=== PATIENT | female | born 1950 ===

== ENCOUNTER → 2020-10-11 | Outpatient (CLI) | payer OTHER, MEDICARE ==
[~2020-10-11] MED LIST: IOHEXOL 180 MG/ML 10 ML VIAL. ONE; LEVO150C3 PO; NIFE60TA90 PO; QUIN40TA16 PO; SIMV40TA18 PO; methylPREDNISolone ACETATE 80 MG/ML VIAL. ONE
--- NOTE | 2020-10-11 12:48 | PDOC4 ---
Procedure Note: ICD 10 Code: ICD 10 Code: M54.16 M51.36 M 96.1 Procedure Note: Patient was consented for lumbar epidural steroid injection with fluoroscopic guidance. Risks were discussed including but not limited to: Bleeding, infection, possibility of epidural hematoma and subsequent neurological compromise, dural puncture, headaches, spinal cord and/or nerve damage, side effects of steroid medication, and poor results regarding pain control. Patient understands and wished to proceed. Procedure is lumbar epidural steroid injection under local anesthetic using ster ile prep and drape at the L4-5 level using C-arm fluoroscopic guidance in both AP and lateral views medications injected is 120 mg Depo-Medrol +10mL preservative-free normal saline and 2 mL contrast- condition at discharge is stable patient tolerated procedure well had no complications. HEIKE HAYS MD Oct 11, 2020 12:48
--- NOTE | 2020-10-11 12:48 | PDOC1 ---
INITIAL PAIN CONSULT DATE OF SERVICE: DOS: DATE: 10/11/20 TIME: 12:41 CHIEF COMPLAINT: Chief Complaint: Low back and right lower extremity pain HISTORY OF PRESENT ILLNESS: 70-year-old female presents history of pain in the low back and right lower extremity for about 3 months now no specific injury or accident that she is aware pain began to come up gradually and is getting worse in the low back area rating the right lower extremity posterior gluteus posterior thigh lateral thigh anterior thigh medial thigh and lateral thigh as well as the top of the foot. Patient reports is becoming more weak she is been stumbling and tripping on her right leg is using a walker now she generally does not use over the past 2 months. Patient reports she has had multiple treatments in the past and had lumbar fusion in 2012 with instrumentation. Patient reports the pain is a constant sharp stabbing throbbing across the low back shooting in the leg on the right side change during the day worse with activity standing walking better with sitting or laying down but is waking her from sleep about every 3-4 hours patient reports is not effective bowel bladder control does affect her ability to walk fairly significantly and she is using a walker which she has with her today. Patient scribes aching the back numbness radiating the right lower extremity and again fatigue and weakness in the right leg patient rates her disability rating 0-10 10 being the worst, as a 10 with family responsibilities recreation social activity sexual behavior 9 with occupation 9 with self-care and life support activities. Patient is currently undergoing physical therapy and has had 2 sessions already without significant decrease in pain at this time. Patient has had chiropractic treatment in the past and is doing exercise on her own. Patient also taking gabapentin which helps the pain but only very minimally has tried baclofen meloxicam as well as cyclobenzaprine all of which did not help. Patient not have any recent imaging of the lumbar spine. PAST MEDICAL HISTORY: PMH: Hypertension, weight loss, arthritis PREVIOUS SURGERIES: Past Surgical Hx: Oophorectomy, lumbar spinal fusion 2012 CURRENT MEDICATIONS: Current Meds: Active Scripts Medications Dose Route/Sig Max Daily Dose Days Date Category Simvastatin 40 Mg Tablet 1 Tab PO QHS 10/11/20 Reported Nifedipine Er (Nifedipine) 60 Mg Tab.er.24 1 Tab PO DAILY 10/11/20 Reported Quinapril Hcl 40 Mg Tablet 1 Tab PO DAILY 30 10/11/20 Reported Levothyroxine (Levothyroxine Sodium) 150 Mcg Capsule 150 Mcg PO DAILY 10/11/20 Reported ALLERGIES; Allergies: Coded Allergies: No Known Drug Allergies (Unverified , 10/11/20) FAMILY HISTORY: Family Hx: Heart disease, cancers SOCIAL HISTORY: Social Hx: Patient does not drink alcohol, smokes less than a pack a day and has for the past 20 years continues to smoke does not use any illegal illicit or recreational drugs is lives with her spouse has 1 child living home lives locally in [place], [place] REVIEW OF SYSTEMS: ROS: Positive for those items mentioned in history of present illness, all systems are reviewed, otherwise negative ,and are complete full and well-documented on patient's chart. PHYSICAL EXAM: VS: Blood pressure is 115/75 pulse 107 respirations 18 temperature 97.8 F height 5 feet 3 inches weight is 154 pounds PE: PHYSICAL EXAMINATION: GENERAL: The patient is awake, alert, oriented, appropriate, very pleasant in demeanor. HEENT: Shows normocephalic, atraumatic. Extraocular movements are intact and symmetrical. Oral cavity: Mucous membranes moist and pink. NECK: Shows anterior throat supple without palpable lymphadenopathy noted. Swal low reflex symmetrical. CHEST: Shows normal on inspection. Breath sounds are clear bilaterally, distant no rales rhonchi or wheezes. HEART: Shows S1, S2 clear. No murmurs auscultated. ABDOMEN: Soft, nontender, nondistended, obese. No palpable organomegaly is noted. BACK: Shows spine grossly in the midline. Normal-appearing cervical lordotic curvature. There is increased thoracic kyphosis, some minor flattening of the lumbar lordotic curvature, with well-healed midline surgical scarring noted. Lumbar paraspinous muscles show symmetrical on inspection, on palpation shows some moderate tenderness diffusely throughout the upper, middle and lower distribution of the paraspinous muscles bilaterally and also into the lower thoracic paraspinous musculature, firm and tender, but without specific trigger points, without radiation of pain. The patient has good rotational motion of the lumbar spine, both laterally as well as extension and flexion without significant difficulty. No tenderness over the spinous processes, sacrum or sacroiliac regions. EXTREMITIES: Lower extremities show deep tendon reflexes 1+ in the patellar and tendo calcaneus tendons. Motor exam is 4 on a scale of 5 with right dorsiflexion, extension, quadriceps and hamstring flexion and 5/5 on the left. Peripheral pulses are 1+ posterior tibial. No peripheral edema is noted bilaterally. Lower extremities are warm and dry to touch, equal in color and appearance. Straight leg raise noted to be positive on the right about 30 degrees, left side is negative. Gaenslen's and Yakov's maneuvers are negative bilaterally. The patient is able to stand, needs help getting up from a seated position, walking with a very shuffling gait using a walker to ambulate and placing a lot of upper body weight on the walker while walking. SKIN: Shows warm and dry, good turgor. No edema. No sores, rashes or bruising throughout. IMPRESSION: Impression: 70-year-old female with approximate 2 to 3-month history increasing pain low back right lower extremity radicular fashion. Previous lumbar discectomy and posterior fusion Hypertension Arthritis Cigarette smoking Hypothyroidism Plan: Options were discussed with the patient including conservative management continued physical therapy and interventional techniques. Patient would like to pursue interventional techniques. We discussed a lumbar epidural steroid inj ection using descriptions as well as anatomical models to describe the procedure. Risks were discussed including but not limited to: Bleeding, infection, possibility of epidural hematoma and subsequent neurological compromise, dural puncture, headaches, spinal cord and/or nerve damage, side effects of steroid medication, and poor results regarding pain control. Patient understands and wished to proceed. Patient will return to the clinic in approximately 2 weeks for follow-up, was counseled as to return appointment activity level and side effects to be aware of. Procedure is lumbar epidural steroid injection under local anesthetic using sterile prep and drape at the L4-5 level using C-arm fluoroscopic guidance in both AP and lateral views medications injected is 120 mg Depo-Medrol +10mL preservative-free normal saline and 2 mL contrast- condition at discharge is stable patient tolerated procedure well had no complications. HEIKE HAYS MD Oct 11, 2020 12:48
== END | disposition home or self-care (01) ==
LOC: PNCL 11:44
PROVIDERS: ATTEND Anesthesiology
DX: M54.5 Low back pain (principal); M79.604 Pain in right leg; I10 Essential (primary) hypertension; M19.90 Unspecified osteoarthritis, unspecified site; R63.4 Abnormal weight loss; E03.9 Hypothyroidism, unspecified; Z87.891 Personal history of nicotine dependence; Z79.899 Other long term (current) drug therapy; Z98.890 Other specified postprocedural states
CPT/HCPCS: 62323; J1040; Q9965

== ENCOUNTER → 2020-10-26 | Outpatient (CLI) | payer OTHER, MEDICARE ==
--- NOTE | 2020-10-26 13:11 | PDOC ---
Progress Note - Pain Clinic Date of Service: DOS: DATE: 10/26/20 TIME: 13:08 Diagnosis: Dx: Lumbar radiculopathy with lumbar degenerative disease and lumbar postlaminectomy syndrome History or Present Illness: HPI: 70-year-old female returns for follow-up status post lumbar epidural steroid injection x1. Patient reports about 20% improvement after the first week or so the pain returning now and is now in both lower extremities and not only the right side patient reports that over the past week she is noticing pain in the l eft side rating the posterior gluteus posterior thigh lateral thigh and calf as well as in the right posterior gluteus lateral thigh anterior thigh medial thigh calf and medial lower leg patient reports is aching and sharp across the back tight and shooting in the leg stabbing can be severe and unbearable both new finding of left lower extremity pain as well as mid to the low back pain on the left patient rates her pain is a 10 on scale 10 is worse over the past week 10 on average 10 at its least is a 10 today. Patient reports she is been taking ibuprofen which does decrease the pain but fears that she is taking too much of that she is taking up to 4 times a day. We did discuss her cutting this back especially after today's procedure. Patient understands. Reports the pain is waking her from sleep at night for the first week or so though she was doing much better with distance walking doing household activities work activities try with greater ease and comfort sleeping better now is beginning to awaken once again and she is using her walker to ambulate. Physical Exam: VS: Blood pressure is 124/78 pulse 120 respirations 20 temperature 97.9 F weight is 145 pounds PE: PHYSICAL EXAMINATION: GENERAL: The patient is awake, alert, oriented, appropriate, very pleasant in demeanor HEENT: Shows normocephalic, atraumatic. Extraocular movements are intact and symmetrical. Oral cavity: Mucous membranes moist and pink. NECK: Shows anterior throat supple without palpable lymphadenopathy noted. Swallow reflex symmetrical. CHEST: Shows normal on inspection. Breath sounds are clear bilaterally, no rales rhonchi wheezes auscultated. HEART: Shows S1, S2 clear. No murmurs auscultated. ABDOMEN: Soft, nontender, nondistended, obese. No palpable organomegaly is noted. BACK: Shows spine grossly in the midline. Normal-appearing cervical lordotic curvature. There is slightly increased thoracic kyphosis, some minor flattening of the lumbar lordotic curvature. Lumbar paraspinous muscles show symmetrical on inspection, on palpation shows some moderate tenderness diffusely throughout the upper, middle and lower distribution of the paraspinous muscles without specific trigger points, without radiation of pain. The patient has good rotational motion of the lumbar spine, both laterally as well as extension and flexion without significant difficulty. EXTREMITIES: Lower extremities show deep tendon reflexes 1 in the patellar and tendo calcaneus tendons. Motor exam is 4 on a scale of 5 with right dorsiflexion, extension, quadriceps and hamstring flexion and 5/5 on the left. Peripheral pulses are 1+ posterior tibial. No peripheral edema is noted bilaterally. Lower extremities are warm and dry to touch, equal in color and appearance. SKIN: Shows warm and dry, good turgor. No edema. No sores, rashes or bruising throughout. Procedure: Procedure: Options discussed with patient. Patient chart reviews her current medication regimen updated current review of systems updated today as well. We will proceed with a lumbar epidural steroid injection today with fluoroscopic guid ance. Risks were discussed including but not limited to: Bleeding, infection, possibility of epidural hematoma and subsequent neurological compromise, dural puncture, headaches, spinal cord and/or nerve damage, side effects of steroid medication, and poor results regarding pain control. Patient understands and wished to proceed. Patient will return to clinic in approximate 2 weeks for follow-up, was counseled as return appointment, activity level, and side effects to be aware of. Medication Injected: Med Injected: Procedure is lumbar epidural steroid injection under local anesthetic using sterile prep and drape at the L4-5 level using C-arm fluoroscopic guidance in both AP and lateral views medications injected is 120 mg Depo-Medrol +10mL preservative-free normal saline and 2 mL contrast- condition at discharge is stable patient tolerated procedure well had no complications. Condition at Discharge: Condition at Discharge: Condition at discharge stable, patient tolerated the procedure well and had no complications. HEIKE HAYS MD Oct 26, 2020 13:11
--- NOTE | 2020-10-26 13:12 | PDOC4 ---
Procedure Note: ICD 10 Code: ICD 10 Code: M54.16 M 96.1 M51.36 Procedure Note: Patient was consented for lumbar epidural steroid injection with fluoroscopic guidance. Risks were discussed including but not limited to: Bleeding, infection, possibility of epidural hematoma and subsequent neurological compromise, dural puncture, headaches, spinal cord and/or nerve damage, side effects of steroid medication, and poor results regarding pain control. Patient understands and wished to proceed. Procedure is lumbar epidural steroid injection under local anesthetic using ster ile prep and drape at the L4-5 level using C-arm fluoroscopic guidance in both AP and lateral views medications injected is 120 mg Depo-Medrol +10mL preservative-free normal saline and 2 mL contrast- condition at discharge is stable patient tolerated procedure well had no complications. HEIKE HAYS MD Oct 26, 2020 13:12
== END | disposition home or self-care (01) ==
LOC: PNCL 11:44
PROVIDERS: ATTEND Anesthesiology
DX: M51.16 Intervertebral disc disorders with radiculopathy, lumbar region (principal); M96.1 Postlaminectomy syndrome, not elsewhere classified; Z79.899 Other long term (current) drug therapy
CPT/HCPCS: 62323; J1040; Q9965